=== PATIENT | male | born 1940 | race Caucasian/White ===

== ENCOUNTER 2016-09-26 14:04 | Emergency (ER) | payer MEDICARE, MEDICAID ==
[~2016-09-26] VITALS: Ht 182.9 cm; Wt 63.5 kg
[2016-09-26 14:04] VITALS: BP 120/72
== END 2016-09-26 16:16 | disposition home or self-care (01) ==
LOC: M ED 16:11
DX: H61.23 Impacted cerumen, bilateral (principal)

== ENCOUNTER 2016-10-24 14:23 | Emergency (ER) | payer MEDICARE, MEDICAID ==
[~2016-10-24] VITALS: Ht 167.6 cm; Wt 67.1 kg
[2016-10-24 14:24] VITALS: BP 117/78
== END 2016-10-24 16:44 | disposition home or self-care (01) ==
LOC: M ED 16:21
DX: H61.22 Impacted cerumen, left ear (principal); J45.909 Unspecified asthma, uncomplicated

== ENCOUNTER 2017-01-28 13:21 | Emergency (ER) | payer MEDICARE, MEDICAID ==
[~2017-01-28] VITALS: Ht 175.3 cm; Wt 64.1 kg
[2017-01-28] MEDS ORDERED: DEBR6.5S4 AU (17:14)
[2017-01-28 17:31] VITALS: BP 115/65
== END 2017-01-28 17:50 | disposition home or self-care (01) ==
LOC: M ED 13:21
DX: H61.23 Impacted cerumen, bilateral (principal); J45.909 Unspecified asthma, uncomplicated

== ENCOUNTER 2020-03-31 07:03 | Emergency (ER) | payer MEDICARE, MEDICAID ==
[~2020-03-31] VITALS: Ht 182.9 cm; Wt 59.8 kg
[~2020-03-31 07:03] MED LIST: DEBR6.5S4 AU
[2020-03-31] MEDS ORDERED: LIDOCAINE 2% 5ML JELLY UROJET TOP ONE (07:45)
--- NOTE | 2020-03-31 08:27 | REPVR ---
PROCEDURE INFORMATION: Exam: CT Abdomen And Pelvis Without Contrast Exam date and time: 03/31/2020 7:40 AM Age: 80 years old Clinical indication: Other: Urinary retention, renal faiure; Other: PT said left inguinal pain; Additional info: Urinary retention, renal failure TECHNIQUE: Imaging protocol: Computed tomography of the abdomen and pelvis without contrast. Radiation optimization: All CT scans at this facility use at least one of these dose optimization techniques: automated exposure control; mA and/or kV adjustment per patient size (includes targeted exams where dose is matched to clinical indication); or iterative reconstruction. COMPARISON: No relevant prior studies available. FINDINGS: Limitations: Evaluation is somewhat limited by lack of IV contrast. Lungs: The visualized lung bases are essentially clear. Liver: Grossly unremarkable. Gallbladder and bile ducts: No gallstones are evident, but ultrasound would be more sensitive. No gross biliary ductal dilatation. Pancreas: Grossly unremarkable. Spleen: Grossly unremarkable. Adrenals: Grossly unremarkable. Kidneys and ureters: There is no hydronephrosis, and no renal or ureteral calculus is identified. The right kidney appears grossly unremarkable. The left kidney contains cysts measuring up to 5 cm, which appears simple and do not require follow-up. It appears otherwise grossly unremarkable. Stomach and bowel: The unopacified small bowel is not significantly distended to suggest obstruction. There is probably mild wall thickening involving the rectum with mild haziness of the perirectal fat. The large bowel is otherwise grossly unremarkable in appearance. Appendix: The appendix appears normal where at least partially visualized, and there is no inflammatory change in the region. Intraperitoneal space: No free air or significant free fluid. Vasculature: The abdominal aorta is nonaneurysmal. Atherosclerotic vascular calcifications are noted. Lymph nodes: No gross pathologic lymphadenopathy. Urinary bladder: The urinary bladder is distended. Reproductive: The prostate is large, measuring 6.5 x 5.3 cm. Bones/joints: The bones appear osteopenic. Degenerative changes involve the spine, sacroiliac joints and hips. Soft tissues: Small fat containing right inguinal hernia. IMPRESSION: 1. Large prostate with distention of the urinary bladder. 2. No hydronephrosis or renal or ureteral calculus. 3. Probable mild wall thickening of the rectum with mild haziness of the perirectal fat, suspicious for proctitis or less likely prostatitis. 4. Small fat containing right inguinal hernia. COMMENTS: Consistent with the [employer] [place] [employer]'s Incidental Findings Committee white paper (J Am She [employer]iol 2018): Any incidental renal lesion less than 1 cm or classified as too small to characterize, or any incidental cystic renal lesion characterized as simple-appearing, is likely benign. No follow-up imaging is recommended for these lesions per consensus recommendations based on imaging criteria. Electronically signed by: Darion Stark On 03/31/2020 08:26:53 AM
[2020-03-31 08:41] LABS: ALBUMIN 4.2 GM/DL (3.2-5.2); BILIRUBIN,DIRECT 0.4 MG/DL (0.0-0.2); TOTAL PROTEIN 7.6 GM/DL (6.4-8.2)
[2020-03-31 08:52] LABS: BASO # 0.1 10^3/uL (0.0-0.2); BASO % 0.5 % (0.0-1.0); EOS % 0.1 % (0.0-3.0); HEMATOCRIT 46.1 % (42.0-52.0); LYMPH # 1.2 10^3/uL (1.5-5.0); LYMPH % 12.8 % (24.0-44.0); MEAN CORPUSCULAR HEMOGLOBIN 31.3 pg (27.0-33.0); MEAN CORPUSCULAR HGB CONC 32.5 g/dl (32.0-36.5); MEAN CORPUSCULAR VOLUME 96.2 fl (80.0-96.0); MONO # 0.6 10^3/uL (0.0-0.8); MONO % 6.9 % (0.0-5.0); NEUTROPHILS # 7.4 10^3/uL (1.5-8.5); NEUTROPHILS % 79.3 % (36.0-66.0); PLATELET COUNT, AUTOMATED 204 10^3/uL (150-450); RED BLOOD COUNT 4.79 10^6/uL (4.30-6.10); WHITE BLOOD COUNT 9.3 10^3/uL (4.0-10.0)
[2020-03-31] MEDS ORDERED: FLOM0.4C39 PO (09:51)
[2020-03-31 10:05] VITALS: BP 128/64
== END 2020-03-31 10:25 | disposition home or self-care (01) ==
LOC: M ED 07:03
DX: R33.9 Retention of urine, unspecified (principal); N28.1 Cyst of kidney, acquired; N40.0 Benign prostatic hyperplasia without lower urinary tract symptoms; K40.90 Unilateral inguinal hernia, without obstruction or gangrene, not specified as recurrent

== ENCOUNTER 2020-04-01 14:42 | Emergency (ER) | payer MEDICARE, MEDICAID ==
[~2020-04-01] VITALS: Ht 182.9 cm; Wt 56.6 kg
[~2020-04-01 14:42] MED LIST changes: +FLOM0.4C39 PO
[2020-04-01 17:29] LABS: BASO % 0.5 % (0.0-1.0); EOS % 0.4 % (0.0-3.0); HEMATOCRIT 43.2 % (42.0-52.0); HEMOGLOBIN 14.4 g/dl (13.5-17.5); LYMPH % 12.6 % (24.0-44.0); MEAN CORPUSCULAR HEMOGLOBIN 31.6 pg (27.0-33.0); MEAN CORPUSCULAR HGB CONC 33.3 g/dl (32.0-36.5); MEAN CORPUSCULAR VOLUME 94.7 fl (80.0-96.0); MONO # 0.7 10^3/uL (0.0-0.8); MONO % 8.6 % (0.0-5.0); NEUTROPHILS # 6.4 10^3/uL (1.5-8.5); NEUTROPHILS % 77.5 % (36.0-66.0); PLATELET COUNT, AUTOMATED 236 10^3/uL (150-450); RED BLOOD COUNT 4.56 10^6/uL (4.30-6.10); WHITE BLOOD COUNT 8.2 10^3/uL (4.0-10.0)
[2020-04-01 17:51] VITALS: BP 146/74
[2020-04-01 17:54] LABS: BLOOD UREA NITROGEN 28 MG/DL (7-18); CALCIUM LEVEL 9.3 MG/DL (8.8-10.2); CARBON DIOXIDE LEVEL 29 MEQ/L (21-32); CHLORIDE LEVEL 105 MEQ/L (98-107); CREATININE FOR GFR 1.12 MG/DL (0.70-1.30); GLOMERULAR FILTRATION RATE > 60.0 (>42); GLUCOSE, FASTING 86 MG/DL (70-100); POTASSIUM SERUM 4.9 MEQ/L (3.5-5.1); SODIUM LEVEL 140 MEQ/L (136-145)
== END 2020-04-01 18:47 | disposition home or self-care (01) ==
LOC: M ED 14:42
DX: T83.098A Other mechanical complication of other urinary catheter, initial encounter (principal); N40.0 Benign prostatic hyperplasia without lower urinary tract symptoms; J45.909 Unspecified asthma, uncomplicated